=== PATIENT | female | born 1970 | race Caucasian/White ===

== ENCOUNTER → 2017-01-12 | Outpatient (CLI) | payer BC | LOC: CIMAGING 10:18 | DX: Z12.31 Encounter for screening mammogram for malignant neoplasm of breast (principal); Z80.3 Family history of malignant neoplasm of breast | CPT/HCPCS: G0202 ==

== ENCOUNTER → 2018-01-13 | Outpatient (CLI) | payer BC | LOC: CIMAGING 10:32 | PROVIDERS: ATTEND Obstetrics & Gynecology | DX: Z12.31 Encounter for screening mammogram for malignant neoplasm of breast (principal); Z80.3 Family history of malignant neoplasm of breast ==

== ENCOUNTER → 2018-02-18 | Outpatient (CLI) | payer BC | LOC: CIMAGING 09:16 | PROVIDERS: ATTEND Family Medicine | DX: R05 Cough (principal) | CPT/HCPCS: 71046-PO ==

== ENCOUNTER → 2019-01-19 | Outpatient (CLI) | payer BC | LOC: EMCIMAGING 10:03 | PROVIDERS: ATTEND Obstetrics & Gynecology | DX: Z12.31 Encounter for screening mammogram for malignant neoplasm of breast (principal) | CPT/HCPCS: 77067-PN ==

== ENCOUNTER → 2019-02-09 | Outpatient (CLI) | payer BC | LOC: EMCIMAGING 08:33 | PROVIDERS: ATTEND Family Medicine | DX: R05 Cough (principal); J45.909 Unspecified asthma, uncomplicated; M51.34 Other intervertebral disc degeneration, thoracic region; M50.31 Other cervical disc degeneration, high cervical region | CPT/HCPCS: 71046-PN ==

== ENCOUNTER → 2019-02-11 | Outpatient (CLI) | payer BC | LOC: EMCIMAGING 09:48 | PROVIDERS: ATTEND Family Medicine | DX: R93.89 Abnormal findings on diagnostic imaging of other specified body structures (principal) | CPT/HCPCS: 70486-PN; 72050-PN ==

== ENCOUNTER → 2019-03-02 | Outpatient (CLI) | payer BC | LOC: EMCIMAGING 10:13 | PROVIDERS: ATTEND Nurse Practitioner Family | DX: R05 Cough (principal) | CPT/HCPCS: 71250-PN ==